=== PATIENT | male | born 1985 | race Caucasian/White ===

== ENCOUNTER 2020-05-08 13:44 | Emergency (ER) | payer OTHER ==
[~2020-05-08] VITALS: Ht 182.9 cm; Wt 74.8 kg
[2020-05-08] MEDS ORDERED: ACETAMINOPHEN650 M2 PO (19:36)
== END 2020-05-08 20:15 | disposition home or self-care (01) ==
LOC: ER 13:44
DX: A90 Dengue fever [classical dengue] (principal); B34.9 Viral infection, unspecified; Z03.818 Encounter for observation for suspected exposure to other biological agents ruled out

== ENCOUNTER 2020-05-11 12:50 | Inpatient (IN) | payer OTHER ==
[~2020-05-11] VITALS: Ht 182.9 cm; Wt 72.6 kg
[~2020-05-11 12:50] MED LIST: ACETAMINOPHEN650 M2 PO
--- NOTE | 2020-05-11 14:06 | NUR ---
PACIENTE ALERTA Y ORIENTADO EN FAIZAN TACHO ESFERAS, REFIERE NATE SIDO DIAGNOSTICADO CON DENGUE HACE UNOS NIXON Y HABERSE REALIZADO UN CBC JAYLAN DONDE LAS PLAQUETAS ESTAN EN 44.6, PACIENTE TAMBIEN REFIERE MALESTAR GENERALIZADO Y DOLOR DE PHOEBE.
--- NOTE | 2020-05-11 16:20 | NUR ---
PACIENTE ALERTA Y ORIENTADO EN TIEMPO LUGAR Y PERSONA. SE ORIENTA SOBRE TRATAMIENTO ORDENADO POR DR. VILLALBA, EL MISMO VERBALIZA ENTENDER. SE COLECTAN MUESTRAS ORDENADAS, SE ADMINISTRAN MEDICAMENTOS HACIENDO USO DE MEDIDAS ASEPTICAS CORRESPONDIENTES Y SE CONECTA TERAPIA DE IVF'S 0.9 NSS 1000ML A 200ML/HR. SE MANTIENE EN OBSERVACION POR CAMBIOS SIGNIFICATIVOS.
--- NOTE | 2020-05-11 19:06 | NUR ---
PTE CONSULTADO CON DR. Jessi IRBY POR TROMBOCITOPENYA Y LEUKOPENIA
== END 2020-05-14 18:06 | disposition home or self-care (01) | DRG 866 ==
LOC: ER 12:50 → MEDI 22:00
PROVIDERS: ADMIT Internal Medicine; ATTEND Internal Medicine
DX: A90 Dengue fever [classical dengue] (principal); D69.6 Thrombocytopenia, unspecified; E86.0 Dehydration; B34.9 Viral infection, unspecified; Z20.828 Contact with and (suspected) exposure to other viral communicable diseases